=== PATIENT | female | born 1975 | race American Indian/Alaskan Native ===

== ENCOUNTER 2017-07-30 06:32 | Emergency (ER) | payer MEDICARE ==
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
[2017-07-30] MEDS ORDERED: TORADOL IM ONE (11:45)
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
[2017-07-30] MEDS ORDERED: TORADOL ONE (12:04)
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
[2017-07-30 14:33] VITALS: BP 134/86
== END 2017-07-30 14:34 | disposition home or self-care (01) ==
LOC: ED 06:32
DX: R13.10 Dysphagia, unspecified (principal); M54.2 Cervicalgia; J45.909 Unspecified asthma, uncomplicated
CPT/HCPCS: 70360; 70490; 96372; 99284; J1885